=== PATIENT | male | born 1960 | race Caucasian/White ===

== ENCOUNTER 2018-05-05 05:49 | Day surgery (SDC) | payer OTHER ==
--- NOTE | 2018-05-03 07:55 | HP ---
HISTORY AND PHYSICAL: DATE OF ADMISSION/SURGERY: 05/05/18 DATE OF OFFICE VISIT: 04/29/18 SURGEON: Ebony Kent MD * (DICTATED BY GERMANIA ISLAS) PROCEDURE: Left knee arthroscopy with partial meniscectomy, possible chondroplasty, possible synovectomy. CHIEF COMPLAINT: Left knee pain. HISTORY OF PRESENT ILLNESS: Mr. March is a 57-year-old gentleman with complaints of left knee pain. An MRI confirmed the meniscus tear and he has elected to proceed with surgery. PAST MEDICAL HISTORY: Denies. PAST SURGICAL HISTORY: Denies. MEDICATIONS: No current medications. ALLERGIES: No known drug allergies. FAMILY HISTORY: Coronary artery disease. SOCIAL HISTORY: He is a 57-year-old gentleman. He lives with his . He does not smoke or use drugs. REVIEW OF SYSTEMS: A complete 14-point review of systems was reviewed with the patient. It was all negative and noncontributory. He denies history of DVT, PE , hepatitis, HIV, or anesthesia problems. PHYSICAL EXAMINATION GENERAL: He is well developed, well nourished, in no acute distress. VITAL SIGNS: He stands 72 inches tall, weighs 255 pounds. His blood pressure is 136/84, his heart rate is 76. HEENT: Normocephalic, atraumatic. NECK: Supple. No palpable lymph nodes. PULMONARY: The lungs are clear to auscultation bilaterally. CARDIO: Regular rate and rhythm. Strong S1, S2. ABDOMEN: Soft, nontender, nondistended. NEUROLOGICAL: He is alert and oriented x3. MUSCULOSKELETAL: Left lower extremity, the skin is intact. There are no open wounds or abrasions. There is some tenderness along the medial joint line with a moderate joint effusion. Positive Apley's. Positive Elton's. Negative Denice's. He has 2+ dorsalis pedis pulse, intact sensation. His lower extremity muscle group strengths are intact at 5/5. ASSESSMENT AND PLAN: Mr. March is a 57-year-old gentleman with complaints of left knee pain secondary to a meniscus tear. He has elected to proceed with a left knee arthroscopy with partial meniscectomy, possible chondroplasty, possible synovectomy. The surgery is scheduled for 05/05/[address] Kent discussed the risks and benefits of the surgery at today's visit and all of his questions were answered. He will follow up with Dr. Kent 2 weeks after the surgery. GERMANIA ISLAS [id number]/[facility] #: [id number] MICHAEL
--- NOTE | 2018-05-03 09:18 | HP ---
HISTORY AND PHYSICAL: DATE OF ADMISSION/SURGERY: 05/05/18 DATE OF OFFICE VISIT: 04/29/18 SURGEON: Ebony Kent MD.* (DICTATED BY GERMANIA ISLAS) PROCEDURE: Left knee arthroscopy with partial meniscectomy, possible chondroplasty, possible synovectomy. CHIEF COMPLAINT: Left knee pain. HISTORY OF PRESENT ILLNESS: Mr. Field is a 57-year-old gentleman with complaints of left knee pain. An MRI confirms a meniscus tear. He has elected to proceed with surgery. PAST MEDICAL HISTORY: Denies. PAST SURGICAL HISTORY: Denies. MEDICATIONS: No medications. ALLERGIES: No known drug allergies. FAMILY HISTORY: Coronary artery disease. SOCIAL HISTORY: He is a 57-year-old gentleman. He lives with his . He does not smoke or use drugs. REVIEW OF SYSTEMS: A complete 14-point review of systems was reviewed with the patient. It was felt negative or noncontributory. He denies history of DVT, PE , hepatitis, HIV, or anesthesia problems. PHYSICAL EXAMINATION GENERAL: He is well developed, well nourished, in no acute distress. VITAL SIGNS: He stands 72 inches tall, weighs 255 pounds. Blood pressure 136/ 84, his heart rate is 82. HEENT: Normocephalic, atraumatic. NECK: Supple. No palpable lymph nodes. PULMONARY: The lungs are clear to auscultation bilaterally. CARDIO: Regular rate and rhythm. Strong S1, S2. ABDOMEN: Soft, nontender, nondistended. NEUROLOGICAL: He is alert and oriented x3. MUSCULOSKELETAL: Left lower extremity, the skin is intact. There are no open wounds or abrasions. There is a [id number] joint effusion. He has some tenderness over the medial and lateral joint lines. Positive Elton's. Positive Apley's. Negative Denice's. Calf is soft and nontender. He has 2+ dorsalis pedis pulses. He is able to dorsiflex and plantar flex. ASSESSMENT AND PLAN: Mr. Field is a 57-year-old gentleman with complaints of left knee pain. An MRI confirms a meniscus tear. He has elected to proceed with left knee arthroscopy with partial meniscectomy, possible chondroplasty, possible synovectomy. Surgery is scheduled for 05/05/[address] Kent discussed the risks and benefits of the surgery at today' s visit and all of his questions were answered. He will follow up with Dr. Kent 2 weeks after the surgery. GERMANIA ISLAS [id number]/[facility] #: [id number] MICHAEL
[~2018-05-05 05:49] MED LIST: Buffered Lidocaine 1% SYRIN* 1 ML/SYRINGE INTRADERM ONE
[2018-05-05] MEDS ORDERED: Dexamethasone IV* 4 MG/ML 1 ML (4 MG) IV SLOW PU ONE (06:00)
[2018-05-05] MEDS ORDERED: Lactated Ringers 1000 ML Bag* 1,000 ML IV SCH (06:00)
[2018-05-05] MEDS ORDERED: Famotidine IV* 10 MG/ML 2 ML (20 mg) IV ONE (06:00)
[2018-05-05] MEDS ORDERED: methylPREDNISolone ACETATE 80* 80 MG/ML 1 ML VIAL ONE (06:28)
[2018-05-05] MEDS ORDERED: Bupivacaine 0.5%* 50 ML VIAL ONE (06:29)
[2018-05-05] MEDS ORDERED: EPINEPHRINE 1 MG/ML 1 ML VIAL ONE (06:29)
[2018-05-05] MEDS ORDERED: Famotidine IV* 10 MG/ML 2 ML (20 mg) ONE (06:53)
[2018-05-05] MEDS ORDERED: Dexamethasone IV* 4 MG/ML 1 ML (4 MG) ONE (06:53)
[2018-05-05] MEDS ORDERED: ceFAZolin 2 GM PREMIX in ORs 2 GM/50 ML BAG IVPB ONE (06:54)
[2018-05-05] MEDS ORDERED: Midazolam* 1 MG/ML 5 ML VIAL (5 MG) ONE (07:24)
[2018-05-05] MEDS ORDERED: Propofol* 10 MG/ML 20 ML BTL ONE (07:24)
[2018-05-05] MEDS ORDERED: Ketorolac INJ* 30 MG/ML 1 ML VIAL ONE (07:24)
[2018-05-05] MEDS ORDERED: Ondansetron INJ* 2 MG/ML VIAL ONE (07:24)
[2018-05-05] MEDS ORDERED: fentaNYL* 50 MCG/ML 2 ML VIAL (100 MCG VIAL) ONE (07:24)
[2018-05-05] MEDS ORDERED: Chloroprocaine 2%* 20 ML VIAL ONE (07:24)
[2018-05-05] MEDS ORDERED: Phenylephrine INJ* 10 MG/ML 1 ML VIAL (10 MG) ONE (07:26)
[2018-05-05] MEDS ORDERED: Ondansetron INJ* 2 MG/ML VIAL IV PRN (08:31)
[2018-05-05] MEDS ORDERED: DiMENhydriNATE IV* 50 MG/ML VIAL IV PUSH PRN (08:31)
[2018-05-05] MEDS ORDERED: fentaNYL* 50 MCG/ML 2 ML VIAL (100 MCG VIAL) IV PRN (08:31)
[2018-05-05] MEDS ORDERED: oxyCODONE/Acetamin 5/325 MG* TAB PO PRN (08:31)
[2018-05-05] MEDS ORDERED: Naloxone* 0.4 MG/ML 1 ML VIAL IV PRN (08:31)
[2018-05-05 09:57] VITALS: BP 131/88
--- NOTE | 2018-05-05 20:25 | OP ---
CONTINUATION ADDENDUM NOW INCLUDED ON THIS REPORT DATE OF OPERATION: 05/05/18 - [facility] DATE OF : 62 SURGEON: Ebony Kent MD [employer] OPERATIONS DIRECTOR: GERMANIA Will. Ms. Burden did help throughout the procedure with preparation of the leg, wound retraction, manipulation of the knee, and wound closure. ANESTHESIOLOGIST: Dr. Cates. ANESTHESIA: Spinal. PRE-OP DIAGNOSIS: Left knee medial meniscal tear, mild osteoarthritis. POST-OP DIAGNOSES: Left knee medial meniscal tear, medial plica, mild osteoarthritis. OPERATIVE PROCEDURE: Left knee arthroscopy with partial medial meniscectomy and medial plica excision. COMPLICATIONS: None. ESTIMATED BLOOD LOSS: Less than 25 cc. SPECIMEN: None. CONTINUATION ADDENDUM: BRIEF HISTORY/INDICATION: Mr. Field presented to the clinic with left knee pain, swelling, and mechanical symptoms along the medial joint line. MRI confirmed a significant medial meniscal tear. He has some baseline arthritic changes. Due to continued pain and failed conservative treatment, the patient elected to undergo left knee arthroscopy with partial medial meniscectomy, possible synovectomy, possible plica excision, possible chondroplasty. The patient had had an acute injury 1 month prior slipping on ice, twisting the knee and sustaining the medial meniscal tear. He failed conservative treatment and wished to proceed with arthroscopy. Informed consent was obtained from him. He understood the risks of surgery included, but were not limited to bleeding, infection, damage to nearby structures, continued pain, need for further surgery, retear of the meniscus, progression of arthritis, stroke, heart attack, blood clot, and anesthesia complication. He wished to proceed. INTRAOPERATIVE FINDINGS: Intraoperatively, the patient was noted to have a large, complex tear involving the white-red zone in the posterior 50% of the medial meniscus. This was displaced into the joint line. He has some free meniscal fragments in the joint fluid. He had a significant medial plica, which did impinge on the patellofemoral compartment with range of motion. He had grade 2 and 3 Outerbridge cartilage change involving the patellofemoral and medial compartments, which were minimal. DESCRIPTION OF PROCEDURE: Mr. Field was identified in the preanesthesia unit. His left lower extremity was marked as the correct operative side. Informed consent was signed and placed in the chart. The patient was taken to the operating room and placed under spinal anesthesia. Left lower extremity was prepped and draped in the usual sterile fashion. Preop time out was made to correctly identify the patient, side and site. Appropriate perioperative antibiotics were given within 1 hour of incision. A standard anterolateral portal incision was made with a #10 blade and carried down to the capsule. Trocar was introduced. As soon as the light and water sources were turned on, there was immediate visualization of the supra-patellar pouch. A tour was performed. Suprapatellar pouch had no obvious abnormalities. Patellofemoral compartment showed minimal grade 2 and 3 Outerbridge cartilage changes. There was a large medial plica which did impinge with range of motion of the knee. Medial gutters showed no loose bodies. Medial compartment showed a complex meniscal tear with displacement anteriorly into the joint space. ACL and PCL appeared to be intact. Minimal grade 2 and 3 Outerbridge cartilage changes of the medial femoral condyle. The knee was placed in a pxsttl-ok-hybe position. There was some small fragments of free meniscus floating in the joint fluid here. Lateral meniscus appeared to be intact. There were no significant degenerative changes of the lateral compartment cartilage. Lateral gutters showed no obvious loose bodies or plica. Under direct visualization, a medial portal incision was made with a #15 blade. A probe was introduced. A second tour of the knee joint was performed. There were no additional findings. A shaver was introduced medially and any free floating fragments of meniscus were carefully removed. Shaver was used as well as radiofrequency ablation wand to remove the medial plica until there was no further impingement with range of motion. Next, a straight biter was used to used to perform partial medial meniscectomy. There was a complex tear most linear involving the posterior 50% of the medial meniscus. This was largely in the white- red zone. A straight biter and shaver were used to perform partial medial meniscectomy until a smooth border of the meniscus was obtained. Further probing of the medial meniscus showed no additional tearing. Radiofrequency ablation wand was used to further smooth the edges of the meniscus. The knee was copiously irrigated with sterile saline. All instruments were carefully removed. Incisions were closed using 3-0 nylon suture. Intraarticular injection of 80 mg Depo-Medrol and 6 cc 0.25% Marcaine was placed in the knee joint. Xeroform, 4x4s, and Webril were used to cover the incision. Mau wrap and cold pack were placed over this. The patient's anesthesia was reversed without difficulty. She was taken to the PACU in stable condition. Intended weightbearing will be weightbearing as tolerated. Intended DVT prophylaxis will be aspirin. [id number]/[facility] #: [id number]- [id number]/[facility] #: [id number] [facility]OSPITALEdith
--- NOTE | 2018-05-05 21:18 | OP ---
OPERATIVE NOTE: DATE OF OPERATION: 05/05/18 DATE OF : 62 SURGEON: Ebony Kent MD ADDENDUM: BRIEF HISTORY/INDICATION: Mr. Field presented to the clinic with left knee pain, swelling, and mechanical symptoms along the medial joint line. MRI confirmed a significant medial meniscal tear. He has some baseline arthritic changes. Due to continued pain and failed conservative treatment, the patient elected to undergo left knee arthroscopy with partial medial meniscectomy, possible synovectomy, possible plica excision, possible chondroplasty. The patient had had an acute injury 1 month prior slipping on ice, twisting the knee and sustaining the medial meniscal tear. He failed conservative treatment and wished to proceed with arthroscopy. Informed consent was obtained from him. He understood the risks of surgery included, but were not limited to bleeding, infection, damage to nearby structures, continued pain, need for further surgery, retear of the meniscus, progression of arthritis, stroke, heart attack, blood clot, and anesthesia complication. He wished to proceed. INTRAOPERATIVE FINDINGS: Intraoperatively, the patient was noted to have a large, complex tear involving the white-red zone in the posterior 50% of the medial meniscus. This was displaced into the joint line. He has some free meniscal fragments in the joint fluid. He had a significant medial plica, which did impinge on the patellofemoral compartment with range of motion. He had grade 2 and 3 Outerbridge cartilage change involving the patellofemoral and medial compartments, which were minimal. DESCRIPTION OF PROCEDURE: Mr. Field was identified in the preanesthesia unit. His left lower extremity was marked as the correct operative side. Informed consent was signed and placed in the chart. The patient was taken to the operating room and placed under spinal anesthesia. Left lower extremity was prepped and draped in the usual sterile fashion. Preop time out was made to correctly identify the patient, side and site. Appropriate perioperative antibiotics were given within 1 hour of incision. A standard anterolateral portal incision was made with a #10 blade and carried down to the capsule. Trocar was introduced. As soon as the light and water sources were turned on, there was immediate visualization of the suprapatellar pouch. A tour was performed. Suprapatellar pouch had no obvious abnormalities. Patellofemoral compartment showed minimal grade 2 and 3 Outerbridge cartilage changes. There was a large medial plica which did impinge with range of motion of the knee. Medial gutters showed no loose bodies. Medial compartment showed a complex meniscal tear with displacement anteriorly into the joint space. ACL and PCL appeared to be intact. Minimal grade 2 and 3 Outerbridge cartilage changes of the medial femoral condyle. The knee was placed in a cybnao-xl-gjwu position. There was some small fragments of free meniscus floating in the joint fluid here. Lateral meniscus appeared to be intact. There were no significant degenerative changes of the lateral compartment cartilage. Lateral gutters showed no obvious loose bodies or plica. Under direct visualization, a medial portal incision was made with a #15 blade. A probe was introduced. A second tour of the knee joint was performed. There were no additional findings. A shaver was introduced medially and any free floating fragments of meniscus were carefully removed. Shaver was used as well as radiofrequency ablation wand to remove the medial plica until there was no further impingement with range of motion. Next, a straight biter was used to used to perform partial medial meniscectomy. There was a complex tear most linear involving the posterior 50% of the medial meniscus. This was largely in the white- red zone. A straight biter and shaver were used to perform partial medial meniscectomy until a smooth border of the meniscus was obtained. Further probing of the medial meniscus showed no additional tearing. Radiofrequency ablation wand was used to further smooth the edges of the meniscus. The knee was copiously irrigated with sterile saline. All instruments were carefully removed. Incisions were closed using 3-0 nylon suture. Intraarticular injection of 80 mg Depo-Medrol and 6 cc 0.25% Marcaine was placed in the knee joint. Xeroform, 4x4s, and Webril were used to cover the incision. Mau wrap and cold pack were placed over this. The patient's anesthesia was reversed without difficulty. She was taken to the PACU in stable condition. Intended weightbearing will be weightbearing as tolerated. Intended DVT prophylaxis will be aspirin. [id number]/[facility] #: [id number] [facility]ITAL[facility]
== END 2018-05-05 10:10 | disposition home or self-care (01) ==
LOC: OR 05:49
PROVIDERS: ATTEND Orthopaedic Surgery Adult Reconstructive Orthopaedic Surgery
DX: S83.242A Other tear of medial meniscus, current injury, left knee, initial encounter (principal); M67.52 Plica syndrome, left knee; M17.12 Unilateral primary osteoarthritis, left knee; E66.9 Obesity, unspecified; X58.XXXA Exposure to other specified factors, initial encounter; Y92.9 Unspecified place or not applicable
CPT/HCPCS: J0690; J1040; J1100; J1885; J2250; J2400; J2405; J2704; J3010